=== PATIENT | female | born 1965 | race Caucasian/White ===

== ENCOUNTER 2016-06-11 12:39 | Emergency (ER) | payer MEDICARE, BC, MEDICAID ==
[~2016-06-11 12:39] MED LIST: ABACAVIR300 M1; ALPHAGAN P 0.15%5 ML RIGHT EYE; AMBIEN10 MG PO; AMBIEN5 M1 PO; AMILORIDE HCL5 M1 PO; ANORO ELLIPTA1 EAC1 INH; ARTIFICIAL TEA3.5 G3 OP; ARTIFICIAL TEAR1512 EACH EYE; ATENOLOL-CHLOR1 EAC1 PO; ATENOLOL25 M1 PO; BENADRYL25 M3 PO; BIOTIN2500 MC1 PO; BUSPAR15 MG PO; BUSPAR30 MG PO; BUSPIRONE HCL15 M2 PO; CALCIUM 600 +1 EA21 PO; CALCIUM 6001.5 G PO; CALCIUM CITRATE CH; CARAFATE1 G2 PO; CEFDINIR300 M1 PO; CELEXA20 MG PO; CELEXA40 MG PO; CELLCEPT500 M1 PO; CELLCEPT500 MG PO; CEROVITE JR1 EACH PO; CHEWABLE-VITE1 EACH PO; CIPRO500 M2 PO; CONCERTA18 MG; CYANOCOBAL1000 MCG/3 SC; CYCLOBENZAPRINE5 M1 PO; DILAUDID2 M1 PO; EFFEXOR75 MG; FEROSUL220 MG/5 M PO; FEROSUL325 M1 PO; FLEXERIL10 MG PO; FLOMAX0.4 MG; FLONASE ALLERG9.9 ML; FLUDROCORTISON0.1 M1 PO; FLUTICASONE PRO16 GM NS; FOSAMAX70 MG; GUAIFENESIN400 M1 PO; INCRUSE ELLI62.5 MCG INH; IRON SULFATE PO; IRON325 M1 PO; IRON325 M3 PO; KLONOPIN0.5 M1 PO; KLONOPIN2 MG; LAMICTAL200 M2 PO; LEVOTHYROXINE100 MCG PO; LEVOTHYROXINE137 MC1 PO; LEVOTHYROXINE50 MCG PO; LEVOTHYROXINE75 MCG PO; LEVOTHYROXINE88 MC2 PO; LEVOXYL125 MC1 PO; LIDOCAINE-PRILO30 G1 TP; LINZESS145 MC1 PO; MAGNESIUM IV; MAGNESIUM400 M2 PO; MAGNESIUM500 MG PO; MELATONIN3 M4 PO; METHOTREXATE2.5 MG; MIDODRINE HCL10 M1 PO; MIGRANAL0.5 MG/SPR; MILK OF MAGNESIA PO; MIRALAX17 G2 PO; MORPHINE SU15 MG/TAB PO; MOVANTIK12.5 MG PO; MULTI COMPLETE1 EAC1 PO; MULTIVITAMIN W/1 TA; NORCO 5/3251 TAB PO; NUCYNTA50 MG PO; OXYCODONE HCL5 MG PO; OXYCONTIN10 M2 PO; PATANOL5 M1 EACH EYE; PATANOL5 M1 OP; PHENERGAN PO; PHENERGAN12.5 MG PO; PHENERGAN25 M1 PO; PHENERGAN25 M2 RC; PHENERGAN25 MG; POLYETHYLENE GL17 G1 PO; POTASSIUM CHLO10 MEQ PO; POTASSIUM CHLO20 ME3 PO; POTASSIUM PO; PREDNISONE10 M1 PO; PREDNISONE10 MG; PREDNISONE10 MG PO; PREDNISONE20 M1 PO; PREMARIN45 GM VG; PROAIR HFA8.5 GM IH; PROAIR HFA8.5 GM INH; PROAMATINE10 MG PO; PROMETHAZINE HC50 M2 PO; PROMETHAZINE-C118 ML PO; REGLAN10 M2 PO; REGLAN5 MG PO; ROXICODONE5 M2 PO; SALINE NASAL M126 ML; SEROQUEL200 MG; SYNTHROID88 MC1 PO; TENORMIN25 M1 PO; TOPAMAX100 M1 PO; TOPAMAX200 MG; TOPAMAX200 MG PO; TOPAMAX25 M2 PO; TOPIRAMATE100 M1 PO; TRAZODONE HCL100 MG PO; TRAZODONE HCL50 M1 PO; TUDORZA PRESS400 MC1 IH; TYLENOL EXTRA500 MG PO; UROCIT-K; UROCIT-K10 ME1 PO; UROCIT-K10 MEQ PO; VENLAFAXINE HCL PO; VENTOLIN HFA18 G2 INH; VITAMIN B12; VITAMIN B121000 MCG IM; VITAMIN D31000 UNI2 PO; VITAMIN D31000 UNIT PO; VITAMIN D32000 UNI3 PO; WELLBUTRIN XL150 M1 PO; XANAX0.25 M1 PO; XARELTO20 M1 PO; ZITHROMAX250 M1 PO; ZOFRAN8 M1 PO; [UNRECOGNIZED DRUG - OTHER] PO
[2016-06-11] MEDS ORDERED: SILVADENE20 G1 TOP (13:21)
[2016-06-11] MEDS ORDERED: AMITIZA8 MC1 PO (13:22)
[2016-06-11] MEDS ORDERED: HYDROXYZINE HCL25 M1 PO (13:22)
[2016-06-11] MEDS ORDERED: SYNTHROID100 MC1 PO (13:23)
[2016-06-11] MEDS ORDERED: FLUDROCORTISON0.1 M1 PO (13:23)
[2016-06-11] MEDS ORDERED: METHADONE HCL10 M1 PO ×2 (13:24→13:25)
[2016-06-11] MEDS ORDERED: VITAMIN C500 M3 PO (13:25)
[2016-06-11] MEDS ORDERED: PROMETH-CODEIN 65 ML PO (13:26)
[2016-06-11 14:23] LABS: URINE BILIRUBIN NEGATIVE (NEG); URINE BLOOD SMALL (NEG); URINE GLUCOSE (UA) NEGATIVE (NEG); URINE KETONE NEGATIVE (NEG); URINE LEUKOCYTE ESTERASE POSITIVE (NEG); URINE NITRITE NEGATIVE (NEG); URINE PROTEIN NEGATIVE (NEG); URINE SPECIFIC GRAVITY 1.025 (1.003-1.030)
[2016-06-11 14:25] LABS: URINE APPEARANCE CLEAR; URINE COLOR YELLOW
[2016-06-11 14:32] LABS: BASO % 0.2 % (0-2); EOS % 0.5 % (0-7); EOSINOPHIL ABSOLUTE COUNT 0.1 tho/cmm (0.0-0.7); HCT-HEMATOCRIT 43.2 % (34.0-49.0); HGB-HEMOGLOBIN 13.7 gm/dl (12.0-15.5); LYMPH ABSOLUTE COUNT 0.8 tho/cmm (0.8-4.5); MCHC MEAN CORPUSCULAR HGB CONC 31.7 % (32.0-36.0); MEAN PLATELET VOLUME 12.1 cmc (9.4-12.4); MONOCYTE ABSOLUTE COUNT 0.5 tho/cmm (0.0-1.2); NEUTROPHIL ABSOLUTE COUNT 11.1 tho/cmm (1.6-8.0); NEUTROPHIL-AUTOMATED 11.1 tho/cmm (1.6-8.0); NEUTROPHILS % 89.3 % (40-80); PLATELET COUNT 190 tho/cmm (150-450); RED BLOOD COUNT 5.08 mil/cmm (4.00-5.20); RED CELL DISTRIBUTION WIDTH 15.9 % (12.4-16.4); WHITE BLOOD COUNT 12.5 tho/cmm (4.0-10.0)
[2016-06-11 14:33] LABS: URINE MUCUS 2+
[2016-06-11 14:36] LABS: ANION GAP 13 mmol/L (0-20); BLOOD UREA NITROGEN 20 mg/dl (6-24); CALCIUM 8.8 mg/dl (8.5-10.5); CARBON DIOXIDE-VENOUS 23 mmol/L (22-32); CHLORIDE 108 mmol/l (96-110); CREATININE 0.68 mg/dl (0.50-1.10); GLUCOSE 95 mg/dL (70-110); POTASSIUM 4.2 mmol/L (3.7-5.1); SODIUM 140 mmol/L (135-145); eGFR VALUE FOR BLACK >90 mL/Min
[2016-06-11 14:52] LABS: INR 0.9 INR (0.9-1.1); PROTHROMBIN TIME 10.9 SECONDS (9.0-13.6)
[2016-08-05] MEDS ORDERED: OXYCODONE HCL5 M1 PO (14:30)
[2016-08-19] MEDS ORDERED: KLONOPIN0.5 M1 PO (12:31)
[2016-08-19] MEDS ORDERED: AMBIEN5 M1 PO (12:34)
[2016-10-09] MEDS ORDERED: MORPHINE SU15 MG/TAB PO (00:12)
[2016-10-09] MEDS ORDERED: DELTASONE20 MG PO (00:17)
[2016-10-09] MEDS ORDERED: SEROQUEL100 M2 PO (00:20)
[2016-10-09] MEDS ORDERED: DURAGESIC1 EAC1 TOP (11:28)
[2016-10-09] MEDS ORDERED: DILAUDID2 M1 PO (11:30)
[2016-10-09] MEDS ORDERED: TRAZODONE HCL50 M1 PO (11:36)
[2016-10-09] MEDS ORDERED: TRANSDERM-SCOP1 EACH TD (11:37)
== END 2016-06-11 15:24 ==
LOC: EDMED 12:39
PROVIDERS: Nurse Practitioner Family
DX: R55 Syncope and collapse (principal); I10 Essential (primary) hypertension; Z86.73 Personal history of transient ischemic attack (TIA), and cerebral infarction without residual deficits; Z87.891 Personal history of nicotine dependence; Z90.49 Acquired absence of other specified parts of digestive tract; Z98.890 Other specified postprocedural states; Z79.899 Other long term (current) drug therapy
CPT/HCPCS: J2270; P9612

== ENCOUNTER 2016-06-21 10:40 | Inpatient (IN) | payer MEDICARE, BC, MEDICAID ==
[~2016-06-21 10:40] MED LIST changes: +AMITIZA8 MC1 PO; +HYDROXYZINE HCL25 M1 PO; +METHADONE HCL10 M1 PO; +PROMETH-CODEIN 65 ML PO; +SILVADENE20 G1 TOP; +SYNTHROID100 MC1 PO; +VITAMIN C500 M3 PO
[2016-06-21 11:50] LABS: BASO % 0.1 % (0-2); BASO ABSOLUTE COUNT 0.1 tho/cmm (0.0-0.2); EOS % 0.4 % (0-7); EOSINOPHIL ABSOLUTE COUNT 0.1 tho/cmm (0.0-0.7); HCT-HEMATOCRIT 57.4 % (34.0-49.0); HGB-HEMOGLOBIN 18.9 gm/dl (12.0-15.5); IMMATURE GRANULOCYTES ABSOLUTE 0.58 tho/cmm (0-0.03); IMMATURE GRANULOCYTES PERCENT 1.7 % (0-0.3); LYMPH % 4.7 % (20-45); LYMPH ABSOLUTE COUNT 1.6 tho/cmm (0.8-4.5); MCH (MEAN CORPUSCULAR HGB) 26.9 pg (28.0-32.0); MCHC MEAN CORPUSCULAR HGB CONC 32.9 % (32.0-36.0); MCV (MEAN CELL VOLUME) 81.8 fl (82.0-96.0); MEAN PLATELET VOLUME 11.5 cmc (9.4-12.4); MONO % 7.4 % (0-12); MONOCYTE ABSOLUTE COUNT 2.5 tho/cmm (0.0-1.2); NEUTROPHILS % 85.7 % (40-80); PLATELET COUNT 247 tho/cmm (150-450); RED BLOOD COUNT 7.02 mil/cmm (4.00-5.20); RED CELL DISTRIBUTION WIDTH 15.1 % (12.4-16.4); WHITE BLOOD COUNT 33.8 tho/cmm (4.0-10.0)
[2016-06-21 11:59] LABS: ALB/GLOB RATIO 0.9 (0.8-2.0); ALBUMIN 4.9 g/dl (3.5-5.0); ALKALINE PHOSPHATASE 170 U/L (33-138); ALT/SGPT 44 U/L (12-78); AMYLASE 117 U/L (20-90); ANION GAP 20 mmol/L (0-20); AST/SGOT 38 U/L (10-40); BILIRUBIN,TOTAL 0.5 mg/dl (0-1.5); BLOOD UREA NITROGEN 54 mg/dl (6-24); CALCIUM 12.7 mg/dl (8.5-10.5); CARBON DIOXIDE-VENOUS 15 mmol/L (22-32); CHLORIDE 99 mmol/l (96-110); CREATININE 2.52 mg/dl (0.50-1.10); GLUCOSE 109 mg/dL (70-110); LIPASE 272 U/L (73-393); MAGNESIUM 1.9 mg/dl (1.8-2.6); POTASSIUM 5.7 mmol/L (3.7-5.1); SODIUM 128 mmol/L (135-145); eGFR VALUE FOR BLACK 24 mL/Min
[2016-06-21 21:36] LABS: URINE BILIRUBIN NEGATIVE (NEG); URINE BLOOD MODERATE (NEG); URINE GLUCOSE (UA) NEGATIVE (NEG); URINE KETONE NEGATIVE (NEG); URINE LEUKOCYTE ESTERASE POSITIVE (NEG); URINE NITRITE POSITIVE (NEG); URINE PROTEIN MODERATE (NEG)
[2016-06-21 21:37] LABS: URINE APPEARANCE CLOUDY; URINE COLOR YELLOW
[2016-06-21 21:46] LABS: URINE AMORPHOUS 1+; URINE BACTERIA 2+; URINE RBC 0 /[HPF] (0-5)
[2016-06-22 05:32] LABS: BASO % 0.1 % (0-2); EOS % 0.1 % (0-7); HCT-HEMATOCRIT 44.8 % (34.0-49.0); HGB-HEMOGLOBIN 14.6 gm/dl (12.0-15.5); IMMATURE GRANULOCYTES ABSOLUTE 0.26 tho/cmm (0-0.03); LYMPH % 5.2 % (20-45); LYMPH ABSOLUTE COUNT 1.3 tho/cmm (0.8-4.5); MCH (MEAN CORPUSCULAR HGB) 26.6 pg (28.0-32.0); MCHC MEAN CORPUSCULAR HGB CONC 32.6 % (32.0-36.0); MCV (MEAN CELL VOLUME) 81.6 fl (82.0-96.0); MEAN PLATELET VOLUME 12.1 cmc (9.4-12.4); MONO % 5.1 % (0-12); MONOCYTE ABSOLUTE COUNT 1.3 tho/cmm (0.0-1.2); NEUTROPHIL ABSOLUTE COUNT 22.6 tho/cmm (1.6-8.0); NEUTROPHIL-AUTOMATED 22.6 tho/cmm (1.6-8.0); NEUTROPHILS % 88.5 % (40-80); PLATELET COUNT 192 tho/cmm (150-450); RED BLOOD COUNT 5.49 mil/cmm (4.00-5.20); RED CELL DISTRIBUTION WIDTH 15.1 % (12.4-16.4); WHITE BLOOD COUNT 25.6 tho/cmm (4.0-10.0)
[2016-06-22 05:48] LABS: AMYLASE 63 U/L (20-90); ANION GAP 16 mmol/L (0-20); BLOOD UREA NITROGEN 54 mg/dl (6-24); CALCIUM 8.9 mg/dl (8.5-10.5); CARBON DIOXIDE-VENOUS 15 mmol/L (22-32); CHLORIDE 108 mmol/l (96-110); GLUCOSE 101 mg/dL (70-110); MAGNESIUM 1.2 mg/dl (1.8-2.6); PHOSPHOROUS 3.6 mg/dl (2.5-4.9); SODIUM 134 mmol/L (135-145)
[2016-06-22 05:53] LABS: CREATININE 1.26 mg/dl (0.50-1.10); LIPASE 148 U/L (73-393); eGFR VALUE FOR BLACK 56 mL/Min
[2016-06-23 05:49] LABS: ANION GAP 14 mmol/L (0-20); BLOOD UREA NITROGEN 29 mg/dl (6-24); CARBON DIOXIDE-VENOUS 21 mmol/L (22-32); CHLORIDE 106 mmol/l (96-110); CREATININE 0.69 mg/dl (0.50-1.10); GLUCOSE 93 mg/dL (70-110); MAGNESIUM 1.7 mg/dl (1.8-2.6); PHOSPHOROUS 2.1 mg/dl (2.5-4.9); SODIUM 138 mmol/L (135-145); eGFR VALUE FOR BLACK >90 mL/Min
[2016-06-23 05:55] LABS: POTASSIUM 3.2 mmol/L (3.7-5.1)
[2016-06-23 05:59] LABS: BASO % 0.1 % (0-2); EOS % 0.7 % (0-7); EOSINOPHIL ABSOLUTE COUNT 0.1 tho/cmm (0.0-0.7); HCT-HEMATOCRIT 38.8 % (34.0-49.0); HGB-HEMOGLOBIN 12.8 gm/dl (12.0-15.5); IMMATURE GRANULOCYTES ABSOLUTE 0.13 tho/cmm (0-0.03); IMMATURE GRANULOCYTES PERCENT 0.8 % (0-0.3); LYMPH % 16.1 % (20-45); LYMPH ABSOLUTE COUNT 2.5 tho/cmm (0.8-4.5); MCH (MEAN CORPUSCULAR HGB) 26.7 pg (28.0-32.0); MCV (MEAN CELL VOLUME) 80.8 fl (82.0-96.0); MEAN PLATELET VOLUME 11.7 cmc (9.4-12.4); MONOCYTE ABSOLUTE COUNT 1.6 tho/cmm (0.0-1.2); NEUTROPHIL ABSOLUTE COUNT 11.4 tho/cmm (1.6-8.0); NEUTROPHIL-AUTOMATED 11.4 tho/cmm (1.6-8.0); NEUTROPHILS % 72.3 % (40-80); PLATELET COUNT 166 tho/cmm (150-450); RED CELL DISTRIBUTION WIDTH 15.3 % (12.4-16.4); WHITE BLOOD COUNT 15.8 tho/cmm (4.0-10.0)
[2016-06-24 06:40] LABS: ALBUMIN 2.7 g/dl (3.5-5.0); ANION GAP 11 mmol/L (0-20); BLOOD UREA NITROGEN 19 mg/dl (6-24); CALCIUM 8.3 mg/dl (8.5-10.5); CARBON DIOXIDE-VENOUS 28 mmol/L (22-32); CHLORIDE 107 mmol/l (96-110); CREATININE 0.54 mg/dl (0.50-1.10); GLUCOSE 79 mg/dL (70-110); MAGNESIUM 1.1 mg/dl (1.8-2.6); PHOSPHOROUS 1.4 mg/dl (2.5-4.9); POTASSIUM 3.8 mmol/L (3.7-5.1); SODIUM 142 mmol/L (135-145); eGFR VALUE FOR BLACK >90 mL/Min
[2016-06-24] MEDS ORDERED: CEFPODOXIME PR100 M1 PO (18:31)
[2016-08-05] MEDS ORDERED: OXYCODONE HCL5 M1 PO (14:30)
[2016-08-19] MEDS ORDERED: KLONOPIN0.5 M1 PO (12:31)
[2016-08-19] MEDS ORDERED: AMBIEN5 M1 PO (12:34)
[2016-10-09] MEDS ORDERED: MORPHINE SU15 MG/TAB PO (00:12)
[2016-10-09] MEDS ORDERED: DELTASONE20 MG PO (00:17)
[2016-10-09] MEDS ORDERED: SEROQUEL100 M2 PO (00:20)
[2016-10-09] MEDS ORDERED: DURAGESIC1 EAC1 TOP (11:28)
[2016-10-09] MEDS ORDERED: DILAUDID2 M1 PO (11:30)
[2016-10-09] MEDS ORDERED: TRAZODONE HCL50 M1 PO (11:36)
[2016-10-09] MEDS ORDERED: TRANSDERM-SCOP1 EACH TD (11:37)
== END 2016-06-24 19:00 | DRG 683 ==
LOC: EDMED 10:40 → EMR2 15:59 → 5WE 17:33
PROVIDERS: Emergency Medicine; Family Medicine; Internal Medicine; Internal Medicine Nephrology; ADMIT Hospitalist
DX: N17.9 Acute kidney failure, unspecified (principal); N39.0 Urinary tract infection, site not specified; E27.40 Unspecified adrenocortical insufficiency; E87.1 Hypo-osmolality and hyponatremia; E83.42 Hypomagnesemia; B37.3 Candidiasis of vulva and vagina; I48.0 Paroxysmal atrial fibrillation; E86.0 Dehydration; B96.89 Other specified bacterial agents as the cause of diseases classified elsewhere; E87.6 Hypokalemia; R11.0 Nausea; G89.4 Chronic pain syndrome; E87.5 Hyperkalemia; L98.429 Non-pressure chronic ulcer of back with unspecified severity; Z95.0 Presence of cardiac pacemaker; Z85.3 Personal history of malignant neoplasm of breast; Z92.21 Personal history of antineoplastic chemotherapy; N31.2 Flaccid neuropathic bladder, not elsewhere classified; E03.9 Hypothyroidism, unspecified; K21.9 Gastro-esophageal reflux disease without esophagitis; K58.9 Irritable bowel syndrome, unspecified; F31.9 Bipolar disorder, unspecified; M79.7 Fibromyalgia; M85.80 Other specified disorders of bone density and structure, unspecified site; G25.81 Restless legs syndrome; J44.9 Chronic obstructive pulmonary disease, unspecified; K59.03 Drug induced constipation; E73.9 Lactose intolerance, unspecified; Z90.49 Acquired absence of other specified parts of digestive tract; Z79.01 Long term (current) use of anticoagulants; Z79.52 Long term (current) use of systemic steroids; Z79.899 Other long term (current) drug therapy; Z88.5 Allergy status to narcotic agent; Z88.1 Allergy status to other antibiotic agents; Z88.6 Allergy status to analgesic agent; Z88.2 Allergy status to sulfonamides; Z88.8 Allergy status to other drugs, medicaments and biological substances; Z93.2 Ileostomy status; T40.2X5A Adverse effect of other opioids, initial encounter
CPT/HCPCS: J0696; J1100; J1170; J1200; J2405; J2550; J2765; J3475; J7030; J7050; J7512; J7517

== ENCOUNTER 2016-07-15 10:49 | Emergency (ER) | payer MEDICARE, BC, MEDICAID ==
[~2016-07-15 10:49] MED LIST changes: +CEFPODOXIME PR100 M1 PO
[2016-07-15] MEDS ORDERED: DURAGESIC1 EAC5 TD (10:56)
[2016-07-15] MEDS ORDERED: BISACODYL5 M1 PO (11:16)
[2016-07-15] MEDS ORDERED: MAGNESIUM IV (11:18)
[2016-07-15] MEDS ORDERED: MELATONIN3 M4 PO (11:19)
[2016-07-15] MEDS ORDERED: PROMETHAZINE HC50 M2 PO (11:20)
[2016-07-15] MEDS ORDERED: DEXAMETHASO4 MG/1 ML IV (11:22)
[2016-07-15] MEDS ORDERED: ONDANSETRON ODT8 M1 SL (11:24)
[2016-07-15 11:43] LABS: HCT-HEMATOCRIT 44.2 % (34.0-49.0); MCH (MEAN CORPUSCULAR HGB) 26.3 pg (28.0-32.0); MCHC MEAN CORPUSCULAR HGB CONC 31.7 % (32.0-36.0); MCV (MEAN CELL VOLUME) 83.1 fl (82.0-96.0); MEAN PLATELET VOLUME 11.3 cmc (9.4-12.4); PLATELET COUNT 196 tho/cmm (150-450); RED BLOOD COUNT 5.32 mil/cmm (4.00-5.20); RED CELL DISTRIBUTION WIDTH 16.2 % (12.4-16.4)
[2016-07-15 12:02] LABS: ALB/GLOB RATIO 0.9 (0.8-2.0); ALBUMIN 3.4 g/dl (3.5-5.0); ALKALINE PHOSPHATASE 109 U/L (33-138); ALT/SGPT 23 U/L (12-78); ANION GAP 14 mmol/L (0-20); AST/SGOT 16 U/L (10-40); BILIRUBIN,TOTAL 0.9 mg/dl (0-1.5); BLOOD UREA NITROGEN 27 mg/dl (6-24); C-REACTIVE PROTEIN 13.6 mg/dl (0-0.9); CALCIUM 9.5 mg/dl (8.5-10.5); CARBON DIOXIDE-VENOUS 22 mmol/L (22-32); CHLORIDE 106 mmol/l (96-110); CREATININE 1.05 mg/dl (0.50-1.10); GLUCOSE 204 mg/dL (70-110); LIPASE 86 U/L (73-393); MAGNESIUM 0.8 mg/dl (1.8-2.6); SODIUM 139 mmol/L (135-145); eGFR VALUE FOR BLACK 70 mL/Min
[2016-07-15 12:09] LABS: URINE BILIRUBIN SMALL (NEG); URINE BLOOD MODERATE (NEG); URINE GLUCOSE (UA) NEGATIVE (NEG); URINE KETONE SMALL (NEG); URINE LEUKOCYTE ESTERASE POSITIVE (NEG); URINE NITRITE NEGATIVE (NEG); URINE PROTEIN MODERATE (NEG); URINE SPECIFIC GRAVITY 1.025 (1.003-1.030)
[2016-07-15 12:10] LABS: POTASSIUM 2.9 mmol/L (3.7-5.1)
[2016-07-15 12:12] LABS: URINE APPEARANCE CLOUDY; URINE COLOR YELLOW
[2016-07-15 12:36] LABS: BAND % 27 % (0-20); BAND ABSOLUTE COUNT 3.5 tho/cmm (0-2.0); BASOPHIL % 1 % (0-2); BASOPHIL ABSOLUTE COUNT 0.1 tho/cmm (0.0-0.2)
[2016-07-15 12:40] LABS: WBC MORPHOLOGY TOXIC GRANULATION
[2016-07-15 12:41] LABS: URINE BACTERIA 4+
[2016-07-15 12:42] LABS: URINE EPITHELIAL CELLS 0 /[HPF] (0-10); URINE WBC 15-18 /[HPF] (0-5)
[2016-08-05] MEDS ORDERED: OXYCODONE HCL5 M1 PO (14:30)
[2016-08-19] MEDS ORDERED: KLONOPIN0.5 M1 PO (12:31)
[2016-08-19] MEDS ORDERED: AMBIEN5 M1 PO (12:34)
[2016-10-09] MEDS ORDERED: MORPHINE SU15 MG/TAB PO (00:12)
[2016-10-09] MEDS ORDERED: DELTASONE20 MG PO (00:17)
[2016-10-09] MEDS ORDERED: SEROQUEL100 M2 PO (00:20)
[2016-10-09] MEDS ORDERED: DURAGESIC1 EAC1 TOP (11:28)
[2016-10-09] MEDS ORDERED: DILAUDID2 M1 PO (11:30)
[2016-10-09] MEDS ORDERED: TRAZODONE HCL50 M1 PO (11:36)
[2016-10-09] MEDS ORDERED: TRANSDERM-SCOP1 EACH TD (11:37)
== END 2016-07-15 17:56 | disposition other institution (70) ==
LOC: EDMED 10:49
PROVIDERS: Emergency Medicine
DX: E86.0 Dehydration (principal); E87.6 Hypokalemia; E83.42 Hypomagnesemia; R10.9 Unspecified abdominal pain; R11.10 Vomiting, unspecified; Z90.89 Acquired absence of other organs; Z86.73 Personal history of transient ischemic attack (TIA), and cerebral infarction without residual deficits; F41.9 Anxiety disorder, unspecified; F17.200 Nicotine dependence, unspecified, uncomplicated; Z79.899 Other long term (current) drug therapy
CPT/HCPCS: J1170; J1200; J1720; J2543; J2550; J2765; J3475; J7030; P9612